=== PATIENT | male | born 1970 | race Caucasian/White ===

== ENCOUNTER 2016-09-30 17:37 | Emergency (ER) | payer OTHER ==
[2016-09-30 17:42] VITALS: BP 113/67; PULSE 70; TEMP 98; BMI 27.4
--- NOTE | 2016-09-30 18:55 | PDOC ---
History of Present Illness - General Chief Complaint: Wound Stated Complaint: WOUND Time Seen by Provider: 09/30/16 18:33 History Source: Other (staff from [place] ) Exam Limitations: No Limitations - History of Present Illness Initial Comments: 09/30/16 19:41 Chief complaint: Blister formation on right 3rd toe with tenderness and surrounding redness History of present illness: Patient is a 46-year-old with Down syndrome an insulin-dependent diabetic here today with staff from her [place] due to staff noticing worsening blister formation with redness around blister on right third toe. Forms with pt. do not have documentation of tetanus, staff unable to provide additional information and tells commercial loan underwriter that no one is at the home that can provide that information. Staff does not know if he stepped on something, he does go barefoot. Pt. is ambulating as usual. Occurred: reports: other (getting worse over last 3 days) Severity: reports: mild Pain Location: reports: lower extremity (slight rt. 3rd toe blister formation with surrounding erythema) Method of Injury: Yes: unknown Modifying Factors: improves with: None Loss of Consciousness: no loss of consciousness Associated Symptoms (Fall): other (blister formation rt. 3rd toe) Past History - Past Medical History Allergies/Adverse Reactions: Allergies Allergy/AdvReac Type Severity Reaction Status Date / Time Penicillins Allergy Verified 09/30/16 17:42 Home Medications: Ambulatory Orders Metformin HCl [Glucophage -] 850 mg PO BID 09/30/16 Sulfamethoxazole/Trimethoprim [Bactrim Ds -] 1 tab PO BID #13 tablet 09/30/16 Diabetes: Yes (pre) Hypercholesterolemia: Yes - Psycho/Social/Smoking Cessation Hx Anxiety: No Suicidal Ideation: No Smoking Status: No Smoking History: Never smoked Have you smoked in the past 12 months: No Number of Cigarettes Smoked Daily: 0 Cigars Per Day: 0 Information on smoking cessation initiated: No Hx Alcohol Use: No Drug/Substance Use Hx: No Substance Use Type: None Review of Systems - Review of Systems Able to Perform ROS?: Yes Constitutional: No: Symptoms Reported HEENTM: No: Symptoms Reported Respiratory: No: Symptoms reported Cardiac (ROS): No: Symptoms Reported ABD/GI: No: Symptoms Reported : No: Symptoms Reported Integumentary: Yes: Other (blister formation rt. toe with surrounding erythema 3rd toe) Neurological: No: Symptoms reported *Physical Exam - Vital Signs Last Vital Signs Temp Pulse Resp BP Pulse Ox 98 F 70 18 113/67 98 09/30/16 17:40 09/30/16 17:40 09/30/16 17:40 09/30/16 17:40 09/30/16 17:40 - Physical Exam General Appearance: Yes: Appropriately Dressed Vascular Pulses: Dorsalis-Pedis (R): 4+ Extremity: positive: Normal Capillary Refill, Normal Inspection, Normal Range of Motion (rt. 3rd toe ), Tender (rt 3 rd toe ) Integumentary: positive: Other (blister formation rt. 3rd toe with surrounding erythema) Neurologic: positive: Respond to painful stimul (rt. 3rd toe ). negative: Numbness, Sensory Deficit (rt. 3rd toe) Procedures - Consent Consent obtained: From Parents - Incision and Drainage I&D Site: Right: Other (toe third ) Betadine cleansed: Yes Attempts: 1 Plain Packing: No Complications: none Dressing: Yes (CHASE knight ) Progress: 09/30/16 19:47 Tiny open area noted on plantar aspect of the right third toe blister, sprayed toe with Cetacaine and cleansing with Betadine and normal saline 0.9% was able to open area with an 18-gauge needle large amount of purulent drainage obtained no foreign body noted area irrigated well with normal saline xray of toe Medical Decision Making - Medical Decision Making 09/30/16 19:44 Patient is a 46-year-old with Down syndrome an insulin-dependent diabetic here today with staff from her [place] due to staff noticing worsening blister formation with redness around blister on right third toe. Forms with pt. do not have documentation of tetanus, staff unable to provide additional information and tells commercial loan underwriter that no one is at the home that can provide that information. Staff does not know if he stepped on something, he does go barefoot. Pt. is ambulating as usual. Rt.third toe blister formation foreign body Removal of foreign body rt. 3rd toe rt. 3rd toe cellulitis PLAN: xray rt. 3rd toe reveals tiny foreign body medial aspect of rt. 3rd toe, no fx noted xray post I & D of rt. 3rd toe blister interval removal of foreign body noted from previous xray per Dr. Das wound culture rt. 3rd toe wound bactrim DS 1 tab now than bid for 7 days removal of rt. 3rd toe foreign body DSD applied 09/30/16 20:17 09/30/16 23:16 *DC/Admit/Observation/Transfer Diagnosis at time of Disposition: Cellulitis of toe of right foot, Foreign body of toe, right, infected - Discharge Dispostion Disposition: HOME Condition at time of disposition: Stable - Prescriptions Prescriptions: Sulfamethoxazole/Trimethoprim [Bactrim Ds -] 1 tab PO BID #13 tablet - Patient Instructions Additional Instructions: Cleanse right third toe with antibacterial soap and water twice daily and apply tiny amount of bacitracin ointment allow in from blister to fall off naturally cover with Band-Aid Make sure that tetanus shot is current if not have it updated with primary care provider could not find record of it being done on forms provided Return to emergency room if any increased redness around right toe or foot or any fever Give ibuprofen as needed as directed by transfer table operator helper Foreign body was removed from blister formation on right third toe Do not allow him to walk around with no shoes on Follow Up with primary care provider within the next few days Patient voiced understanding of discharge instructions and all questions were answered
[2016-09-30] MEDS ORDERED: SULFAMETHOXAZOLE/TRIMETHOPRIM 800MG/160MG D.S. TABLET PO ONE (19:41)
[2016-09-30] MEDS ORDERED: SULFAMETHOXAZOLE/TRIMETHOPRIM 800MG/160MG D.S. TABLET ONE (19:43)
== END 2016-09-30 20:32 | disposition home or self-care (01) ==
LOC: JERFT 17:37
PROC: 0H9MXZZ Drainage of Right Foot Skin, External Approach (ICD-10-PCS; principal; 2016-09-30)
DX: L03.031 Cellulitis of right toe (principal); S90.454A Superficial foreign body, right lesser toe(s), initial encounter; E11.9 Type 2 diabetes mellitus without complications; Z79.84 Long term (current) use of oral hypoglycemic drugs; Q90.9 Down syndrome, unspecified
CPT/HCPCS: 73660-TC; 87070; 87186; 87205; 99281-25

== ENCOUNTER 2018-08-09 10:48 | Emergency (ER) | payer OTHER ==
[2018-08-09 11:30] VITALS: BMI 27.8
--- NOTE | 2018-08-09 13:07 | PDOC ---
History of Present Illness - General History Source: Care Provider - History of Present Illness Initial Comments: 08/09/18 13:18 The patient is a 48-year-old male from [facility], with a past medical history of down syndrome, HLD, and prediabetes, who presents to the ED with 1 month of difficulty with urination. Mariela is at bedside and states that she feels that the foreskin is so small that the urine is having difficulty coming through. When the patient tries to urinate the urine is getting caught behind the foreskin. Patient reports pain with urination today. He has not seen a urologist yet. Denies any hematuria. The patient denies any fevers, chills, nausea, vomiting, diarrhea, or abdominal pain. Denies chest pain shortness of breath. Allergies: Penicillins. Social History: None reported. Surgical History: None reported. <Graciela Gonzales - Last Filed: 08/09/18 13:25> <Elizabeth Live - Last Filed: 08/09/18 14:46> - General Chief Complaint: Urinary Problem Stated Complaint: URINARY PROBLEM Time Seen by Provider: 08/09/18 11:52 Past History <Graciela Gonzales - Last Filed: 08/09/18 13:25> - Past Medical History COPD: No Diabetes: Yes (pre) Hypercholesterolemia: Yes - Immunization History Immunization Up to Date: No - Suicide/Smoking/Psychosocial Hx Smoking Status: No Smoking History: Never smoked Have you smoked in the past 12 months: No Number of Cigarettes Smoked Daily: 0 Cigars Per Day: 0 Information on smoking cessation initiated: No Hx Alcohol Use: No Drug/Substance Use Hx: No Substance Use Type: None <Elizabeth Live - Last Filed: 08/09/18 14:46> - Past Medical History Allergies/Adverse Reactions: Allergies Allergy/AdvReac Type Severity Reaction Status Date / Time Penicillins Allergy Verified 09/30/16 17:42 Home Medications: Ambulatory Orders Sulfamethoxazole/Trimethoprim [Bactrim Ds -] 1 tab PO BID #13 tablet 09/30/16 metFORMIN HCL [Glucophage -] 850 mg PO BID 09/30/16 Review of Systems - Review of Systems Able to Perform ROS?: Yes Comments:: 08/09/18 13:25 GENERAL/CONSTITUTIONAL: No fever or chills. No weakness. HEAD, EYES, EARS, NOSE AND THROAT: No change in vision. No ear pain or discharge. No sore throat. CARDIOVASCULAR: No chest pain or shortness of breath. RESPIRATORY: No cough, wheezing, or hemoptysis. GASTROINTESTINAL: No nausea, vomiting, diarrhea or constipation. GENITOURINARY: (+)Difficulty with urination and dysuria. No frequency. MUSCULOSKELETAL: No joint or muscle swelling or pain. No neck or back pain. SKIN: No rash NEUROLOGIC: No headache, vertigo, loss of consciousness, or change in strength/ sensation. ENDOCRINE: No increased thirst. No abnormal weight change. HEMATOLOGIC/LYMPHATIC: No anemia, easy bleeding, or history of blood clots. ALLERGIC/IMMUNOLOGIC: No hives or skin allergy. <Graciela Gonzales - Last Filed: 08/09/18 13:25> *Physical Exam - Vital Signs Last Vital Signs Temp Pulse Resp BP Pulse Ox 98.4 F 86 18 98/65 98 08/09/18 11:26 08/09/18 11:26 08/09/18 11:26 08/09/18 11:08/09/18 11:26 - Physical Exam Comments: 08/09/18 13:27 GENERAL: Awake, alert, and fully oriented, in no acute distress HEAD: No signs of trauma EYES: PERRLA, EOMI, sclera anicteric, conjunctiva clear ENT: Auricles normal inspection, nares patent, oropharynx clear without exudates. Moist mucosa. NECK: Normal ROM, supple, no lymphadenopathy, JVD, or masses LUNGS: Breath sounds equal, clear to auscultation bilaterally. No wheezes, and no crackles HEART: Regular rate and rhythm, normal S1 and S2, no murmurs, rubs or gallops ABDOMEN: Soft, nontender, normoactive bowel sounds. No guarding, no rebound. No masses : (+)Foreskin is forward and the opening is less than a mm big, cloudy urine is coming from the meatus. No erythema, no discharge. EXTREMITIES: Normal range of motion, no edema. No clubbing or cyanosis. No cords, erythema, or tenderness NEUROLOGICAL: Alert and oriented x3. Moves all extremities. Face is symmetric. SKIN: Warm, Dry, normal turgor, no rashes or lesions noted <Graciela Gonzales - Last Filed: 08/09/18 13:25> - Vital Signs Last Vital Signs Temp Pulse Resp BP Pulse Ox 98.4 F 86 18 98/65 98 08/09/18 11:26 08/09/18 11:26 08/09/18 11:26 08/09/18 11:26 08/09/18 11:26 <Elizabeth Live - Last Filed: 08/09/18 14:46> Moderate Sedation - Procedure Monitoring Vital Signs: Procedure Monitoring Vital Signs Temperature 98.4 F 08/09/18 11:26 Pulse Rate 86 08/09/18 11:26 Respiratory Rate 18 08/09/18 11:26 Blood Pressure 98/65 08/09/18 11:26 O2 Sat by Pulse Oximetry (%) 98 08/09/18 11:26 <Graciela Gonzales - Last Filed: 08/09/18 13:25> - Procedure Monitoring Vital Signs: Procedure Monitoring Vital Signs Temperature 98.4 F 08/09/18 11:26 Pulse Rate 86 08/09/18 11:26 Respiratory Rate 18 08/09/18 11:26 Blood Pressure 98/65 08/09/18 11:26 O2 Sat by Pulse Oximetry (%) 98 08/09/18 11:26 <Elizabeth Live - Last Filed: 08/09/18 14:46> Medical Decision Making - Medical Decision Making 08/09/18 13:05 48 yo male with h/o downs syndrome here with c/o difficulty urinating due to small opening at foreskin, uncircumcised. no fc no n/v no abd pain, mild dysuria. small opening at meatus. pt is passing urine. will require urology fu. ua r/o uti. 08/09/18 14:13 d/w dr callejas, 08/09/18 14:32 urine negative for UTi will fu dr callejas 10 am on 08/11. <Elizabeth Live - Last Filed: 08/09/18 14:46> *DC/Admit/Observation/Transfer - Attestations Scribe Attestion: 08/09/18 13:28 Documentation prepared by Graciela Gonzales, acting as product manager medical device for Elizabeth Live MD. <Graciela Gonzales - Last Filed: 08/09/18 13:25> <Elizabeth Live - Last Filed: 08/09/18 14:46> Diagnosis at time of Disposition: Foreskin adhesions - Discharge Dispostion Disposition: HOME Condition at time of disposition: Stable - Referrals Referrals: Tao Callejas MD [Staff Physician] - - Patient Instructions Printed Discharge Instructions: DI for Circumcision Additional Instructions: you should follow up with DR Callejas, at 10 am 08/11/ return for inability to urinate, fever chills or any concerns.
[2018-08-09 14:22] LABS: URINE APPEARANCE SLCLOUDY; URINE BILIRUBIN NEGATIVE (<2.0 mg/dL); URINE COLOR LTYELLOW; URINE GLUCOSE (UA) NEGATIVE (NEGATIVE); URINE KETONE NEGATIVE (NEGATIVE); URINE LEUK ESTERASE NEGATIVE (NEGATIVE); URINE NITRITE NEGATIVE (NEGATIVE); URINE PROTEIN NEGATIVE (NEGATIVE); URINE UROBILINOGEN NEGATIVE mg/dL (0.2-1.0)
[2018-08-09 15:45] VITALS: BP 102/60; PULSE 83; TEMP 98
== END 2018-08-09 15:45 | disposition home or self-care (01) ==
LOC: JER 10:48
DX: Q55.8 Other specified congenital malformations of male genital organs (principal); E11.9 Type 2 diabetes mellitus without complications; Z79.84 Long term (current) use of oral hypoglycemic drugs; E78.5 Hyperlipidemia, unspecified; E78.00 Pure hypercholesterolemia, unspecified; Q90.9 Down syndrome, unspecified
CPT/HCPCS: 81003; 87086; 87186; 99282-25

== ENCOUNTER 2018-08-19 12:24 | Day surgery (SDC) | payer OTHER ==
--- NOTE | 2018-08-19 13:27 | HP ---
History & Physical Update - History History: No Change - Physical Physical: No Change - Assessment Assessment: No Change - Plan Plan: No Change
--- NOTE | 2018-08-19 13:28 | OP ---
Operative Note - Note: Operative Date: 08/19/18 Pre-Operative Diagnosis: phimosis Operation: circumcision and penoplasty Findings: phimosis Post-Operative Diagnosis: Same as Pre-op (and penile deformity/chordee) Surgeon: Tao Callejas Anesthesiologist/PREPARATION ROOM MANAGER: Gill Vo Anesthesia: General, Local Specimens Removed: foreskin Estimated Blood Loss (mls): 0 Operative Report Dictated: Yes
[2018-08-19] MEDS ORDERED: BUPIVACAINE HCL/PF 0.5% (5MG/ML) 10 ML VIAL ONE (14:15)
[2018-08-19] MEDS ORDERED: LIDOCAINE HCL/PF 2% SDV 5ML VIAL ONE (14:34)
[2018-08-19] MEDS ORDERED: PROPOFOL 20 ML ONE ×3 (14:34)
[2018-08-19] MEDS ORDERED: CLINDAMYCIN PHOSPHATE 600 MG/4 ML VIAL ONE (14:42)
[2018-08-19] MEDS ORDERED: CLINDAMYCIN 600 MG PREMIX BAG IVPB ONE (14:43)
[2018-08-19] MEDS ORDERED: BUPIVACAINE HCL/PF 0.5% (5MG/ML) 10 ML VIAL IJ ONE (15:04)
[2018-08-19] MEDS ORDERED: ONDANSETRON 4 MG/2 ML VIAL IVPUSH PRN (15:57)
[2018-08-19] MEDS ORDERED: oxyCODONE HCL 5 MG TABLET PO PRN ×2 (15:57)
[2018-08-19] MEDS ORDERED: LACTATED RINGERS SOLUTION 1,000 ML IV SCH (16:00)
[2018-08-19 16:28] VITALS: TEMP 97.5
[2018-08-19] MEDS ORDERED: BACITRACIN 15 GM TUBE TOPICAL OINTMENT ONE (16:28)
--- NOTE | 2018-08-19 16:47 | OP ---
DATE OF OPERATION: 08/19/2018 PREOPERATIVE DIAGNOSIS: Phimosis. POSTOPERATIVE DIAGNOSIS: Phimosis, penile deformity. PROCEDURE: Circumcision and penoplasty. SURGEON: Tao Parks MD MANUFACTURER: None. ANESTHESIA: General via laryngeal mask plus local. ANESTHESIOLOGIST: Gilda. SPECIMEN: Foreskin. CULTURES: None. DRAINS: None. ESTIMATED BLOOD LOSS: Negligible. COMPLICATIONS: None. DESCRIPTION OF PROCEDURE: The patient was brought into the operating room and placed on the operating table in supine position. After administration of general anesthesia via laryngeal mask, intravenous antibiotics were administered. Sequential compression devices were placed. The patient was placed in a dorsal lithotomy position, and the genitals were prepped and draped in the usual sterile manner. The foreskin could not be retracted due to severe phimosis. A dorsal slit was made after placing a straight clamp. This was done at the 12 o'clock position. The foreskin was retracted, and the glans penis and prepuce was now prepped again with Betadine. Circumcoronal incision had been outlined with a marking pen. Then 10 mL of 0.5% Marcaine was injected circumferentially at the base of the penis for penile block. Circumcoronal incision was made with scalpel at the previously marked circumcoronal incision. The prepuce was now incised circumferentially leaving 1/2-cm cuff circumferentially. The redundant foreskin was excision and sent to Pathology as a specimen. Hemostasis was assured with electrocautery. Penile deformity of chordee was noted. Artificial erection was created. Some adhesions at the ventral aspect of the penis overlying the urethra were incised carefully using Metzenbaum scissors. Straightening of the chordee was achieved. Now the penile skin and subcoronal prepucal mucosal tissue was approximated using interrupted 4-0 chromic sutures circumferentially. The wounds were sterilely dressed with bacitracin, Xeroform gauze, 4 x 4, and Coban. He tolerated the procedure well. He was awoken from anesthesia in the operating room and transferred to the recovery room in stable condition. TAO PARKS M.D. [id number]
[2018-08-19 17:20] VITALS: BP 132/80; PULSE 79
--- NOTE | 2018-08-23 16:50 | PATH ---
Surgical Pathology Report Patient Name: SAWYER AGUSTIN [facility]. Rec. #: [id number] /Age/Gender: 1970 (Age: 48) / M Account: [id number] Location: [facility] SUR[facility]ICAL Taken: 08/19/2018 Received: 08/22/2018 Reported: 08/23/2018 Physicians: Tao Callejas M.D. Specimen(s) Received FORESK[place] Clinical History Phimosis Final Diagnosis FOR[place], EXCISION: SEGMENT OF SKIN WITH CHRONIC INFLAMMATION AND FOCAL CHANGES CONSISTENT WITH LICHEN SCLEROSUS. Electronically Signed Matt Torres M.D. Gross Description Received in formalin labeled "foreskin," is a 3.5 x 2.6 x 0.3 cm portion of riley-brown, wrinkled skin, consistent with foreskin. Data Processing Auditor sections are submitted in one cassette. /08/22/2018 saudi08/22/2018
== END 2018-08-19 17:00 | disposition home or self-care (01) ==
LOC: JASU-SURG 12:24
PROVIDERS: ATTEND Urology
PROC: 0VNS0ZZ Release Penis, Open Approach (ICD-10-PCS; 2018-08-19)
PROC: 0VTTXZZ Resection of Prepuce, External Approach (ICD-10-PCS; principal; 2018-08-19 13:30)
DX: N47.1 Phimosis (principal); N48.89 Other specified disorders of penis
CPT/HCPCS: 82962; 88304-TC; 94760

== ENCOUNTER 2018-10-19 23:10 | Emergency (ER) | payer OTHER ==
[2018-10-19 23:21] VITALS: BP 122/76; PULSE 77; TEMP 97.4; BMI 29.2
--- NOTE | 2018-10-20 00:51 | PDOC ---
*Physical Exam - Vital Signs Last Vital Signs Temp Pulse Resp BP Pulse Ox 97.4 F L 77 18 122/76 99 10/19/18 23:17 10/19/18 23:17 10/19/18 23:17 10/19/18 23:17 10/19/18 23:17 Medical Decision Making - Medical Decision Making 10/20/18 00:51 Patient seen by the advanced practice provider under my direct supervision. Ancillary testing reviewed as necessary. I agree with plan as outlined by the advanced practice provider. *DC/Admit/Observation/Transfer Diagnosis at time of Disposition: Paronychia - Referrals - Patient Instructions - Post Discharge Activity
--- NOTE | 2018-10-20 01:10 | PDOC ---
History of Present Illness - General Chief Complaint: Edema Stated Complaint: RIGHT/HAND MIDDLE FINGER Time Seen by Provider: 10/20/18 00:49 History Source: Patient, Care Provider Exam Limitations: No Limitations - History of Present Illness Initial Comments: 10/20/18 01:04 HISTORY OF PRESENT ILLNESS: 48-year-old male with developmental delay presents emergency Department for evaluation of swelling to the middle finger of the right hand over the past 4 days. At the patient's longterm given soaking the finger in warm water. Patient reports increased pain and now with pus formation was brought for treatment. No recent travel or sick contacts. PAST MEDICAL HISTORY: Denies past medical history SURGICAL HISTORY: Denies ALLERGIES: PCN REVIEW OF SYSTEMS General/Constitutional: Denies fever or chills. Denies weakness, weight change. HEENT: Denies change in vision. Denies ear pain or discharge. Denies sore throat. Cardiovascular: Denies chest pain or shortness of breath. Respiratory: Denies cough, wheezing, or hemoptysis. Gastrointestinal: Denies nausea, vomiting, diarrhea or constipation. Denies rectal bleeding. Genitourinary: Denies dysuria, frequency, or change in urination. Musculoskeletal: see HPI Skin and breasts: Denies rash or easy bruising. Neurologic: Denies headache, vertigo, loss of consciousness, or loss of sensation. Psychiatric: Denies depression or anxiety. Endocrine: Denies increased thirst. Denies abnormal weight change. Hematologic/Lymphatic: Denies anemia, easy bleeding, or history of blood clots. Allergic/Immunologic: Denies hives or skin allergy. Denies latex allergy. PHYSICAL EXAM General Appearance: Well-appearing, appropriately dressed. No apparent distress , no intoxication. Respiratory/Chest: Lungs CTAB. No shortness of breath, chest tenderness, respiratory distress, accessory muscle use. No crackles, rales, rhonchi, stridor , wheezing, dullness Cardiovascular: RRR. S1, S2. No JVD, murmur, bradycardia, tachycardia. Musculoskeletal/Extremities: Normal inspection. FROM of all extremities, normal capillary refill. Pelvis Stable. No CVA tenderness. No tenderness to extremities, pedal edema, swelling, erythema or deformity. Integumentary: Paronychia present to the third digit of the right hand with pus pocket presents. No erythema or tenderness to the pad of the affected digit. Capillary refill is less than 2 seconds. Neurologic: sports specialist II-XII intact. Fully oriented, alert. Appropriate mood/affect. Motor strength 5/5. No appreciable EOM palsy, facial droop or sensory deficit. Past History - Past Medical History Allergies/Adverse Reactions: Allergies Allergy/AdvReac Type Severity Reaction Status Date / Time Penicillins Allergy Unverified 10/19/18 23:17 Home Medications: Ambulatory Orders Cyanocobalamin [Vitamin B12 -] 500 mcg PO DAILY 08/19/18 Clindamycin HCl 450 mg PO TID #63 capsule 10/20/18 Anemia: No Asthma: No Cancer: No Cardiac Disorders: No CVA: No COPD: No CHF: No Dementia: No Diabetes: Yes GI Disorders: No Disorders: No HTN: No Hypercholesterolemia: No Liver Disease: No Seizures: No Thyroid Disease: No Other medical history: celiac disease, down's syndrome, mental retardation - Immunization History Immunization Up to Date: Yes - Suicide/Smoking/Psychosocial Hx Smoking Status: No Smoking History: Never smoked Have you smoked in the past 12 months: No Number of Cigarettes Smoked Daily: 0 Cigars Per Day: 0 Hx Alcohol Use: No Drug/Substance Use Hx: No Substance Use Type: None Hx Substance Use Treatment: No *Physical Exam - Vital Signs Last Vital Signs Temp Pulse Resp BP Pulse Ox 97.4 F L 77 18 122/76 99 10/19/18 23:17 10/19/18 23:17 10/19/18 23:17 10/19/18 23:17 10/19/18 23:17 Procedures - Consent Consent obtained: Verbal, From Guardians - Incision and Drainage I&D Site: Right: Paronychia (3rd finger) Betadine cleansed: Yes Blade Size: 11 Attempts: 1 Plain Packing: No Complications: none Dressing: No Progress: 10/20/18 01:07 Patient tolerated well. Medical Decision Making - Medical Decision Making 10/20/18 01:07 A/P: 48-year-old developmental delayed male with paronychia of the right middle finger I and D-see procedure note for details wound culture I will discharge the patient home with prescription for clindamycin for her 50 mg 3 times a day for 7 days. 10/20/18 01:12 10/21/18 02:20 *DC/Admit/Observation/Transfer Diagnosis at time of Disposition: Paronychia - Discharge Dispostion Disposition: HOME Condition at time of disposition: Stable Decision to Admit order: No - Prescriptions Prescriptions: Clindamycin HCl 450 mg PO TID #63 capsule - Referrals - Patient Instructions Additional Instructions: Take clindamycin 450mg 3 times a day for the next 7 days Finish all antibiotics even if you feel better. Apply warm compresses to your finger as needed. Do not pick wound. Return to emergency department for any worsening pain, drainage, or any other concerns. Thank you very much for choosing us to provide your emergent health care needs. - Post Discharge Activity
== END 2018-10-20 02:18 | disposition home or self-care (01) ==
LOC: JER 23:10
PROC: 0J9J0ZZ Drainage of Right Hand Subcutaneous Tissue and Fascia, Open Approach (ICD-10-PCS; principal; 2018-10-19)
DX: L03.011 Cellulitis of right finger (principal); E11.9 Type 2 diabetes mellitus without complications; Z79.84 Long term (current) use of oral hypoglycemic drugs; K90.0 Celiac disease; F79 Unspecified intellectual disabilities; Q90.9 Down syndrome, unspecified
CPT/HCPCS: 87070; 87186; 87205; 99281-25

== ENCOUNTER 2023-08-03 16:44 | Inpatient (IN) | payer OTHER ==
[2023-08-03 16:54] VITALS: BMI 32.0
[2023-08-03] MEDS ORDERED: ACETAMINOPHEN INJECTION 100 ML IVPB ONE (18:05)
[2023-08-03 18:07] LABS: BASO % 1.3 % (0-2.0); EOS % 0.6 % (0-4.5); HEMATOCRIT 42.3 % (35.4-49); HEMOGLOBIN 14.3 GM/dL (11.7-16.9); LYMPH % 45.6 % (8-40); MCH 33.1 pg (25.7-33.7); MCHC 33.7 g/dl (32.0-35.9); MEAN CELL VOLUME 98.3 fl (80-96); MEAN PLT VOLUME 6.9 fl (7.5-11.1); MONO % 12.5 % (3.8-10.2); PLATELET COUNT 274 10^3/uL (134-434); RBC 4.31 M/mm3 (4.00-5.60); RDW 15.6 % (11.9-15.9); WHITE BLOOD COUNT 6.1 K/mm3 (4.0-10.0)
[2023-08-03] MEDS: ACETAMINOPHEN 1000 MG/100 ML BAG IVPB ONE (18:10)
[2023-08-03 18:27] LABS: CALCIUM 8.1 mg/dL (8.5-10.1)
[2023-08-03 18:28] LABS: ALBUMIN 2.5 g/dl (3.4-5.0); BLOOD UREA NITROGEN 16.2 mg/dL (7-18)
[2023-08-03 18:33] LABS: TOT PROT 10.6 g/dl (6.4-8.2)
[2023-08-03 19:47] LABS: URINE APPEARANCE CLEAR; URINE BILIRUBIN NEGATIVE (NEGATIVE); URINE COLOR YELLOW; URINE GLUCOSE (UA) NEGATIVE (NEGATIVE); URINE KETONE TRACE (NEGATIVE); URINE LEUK ESTERASE NEGATIVE (NEGATIVE); URINE NITRITE NEGATIVE (NEGATIVE); URINE PROTEIN NEGATIVE (NEGATIVE); URINE UROBILINOGEN 0.2 mg/dL (0.2-1.0)
[2023-08-03 21:36] LABS: POTASSIUM 3.9 mmol/L (3.5-5.1)
[2023-08-03 21:40] LABS: ALBUMIN 2.9 g/dl (3.4-5.0); BLOOD UREA NITROGEN 13.6 mg/dL (7-18); CALCIUM 7.9 mg/dL (8.5-10.1)
[2023-08-03 21:43] LABS: CREATININE 0.9 mg/dL (0.55-1.3)
[2023-08-03 21:44] LABS: BILIRUBIN,TOTAL 0.9 mg/dL (0.2-1)
[2023-08-03 21:52] LABS: TOT PROT 6.9 g/dl (6.4-8.2)
[2023-08-04] MEDS: ACETAMINOPHEN 500 MG TABLET (FP) PO SCH (03:56)
[2023-08-04] MEDS: CARBIDOPA/LEVODOPA 25/100 TABLET (FP) PO SCH (06:27)
[2023-08-04] MEDS: LEVOTHYROXINE NA 25 MCG TABLET (FP) PO SCH (06:27)
[2023-08-04 09:48] LABS: HEMATOCRIT 41.1 % (35.4-49); HEMOGLOBIN 13.9 GM/dL (11.7-16.9); MCH 33.2 pg (25.7-33.7); MCHC 33.9 g/dl (32.0-35.9); MEAN CELL VOLUME 97.8 fl (80-96); MEAN PLT VOLUME 6.9 fl (7.5-11.1); PLATELET COUNT 269 10^3/uL (134-434); RBC 4.21 M/mm3 (4.00-5.60); RDW 15.4 % (11.9-15.9); WHITE BLOOD COUNT 4.6 K/mm3 (4.0-10.0)
[2023-08-04] MEDS ORDERED: CYANOCOBALAMIN (VITAMIN B-12) 100 MCG TABLET PO SCH (10:00)
[2023-08-04 10:05] LABS: POTASSIUM 3.8 mmol/L (3.5-5.1)
[2023-08-04 10:26] LABS: CALCIUM 8.4 mg/dL (8.5-10.1); MAGNESIUM 2.5 mg/dL (1.8-2.4)
[2023-08-04 10:29] LABS: CREATININE 0.9 mg/dL (0.55-1.3); PHOSPHOROUS 3.4 mg/dL (2.5-4.9)
[2023-08-04 10:30] LABS: BILIRUBIN,TOTAL 0.7 mg/dL (0.2-1)
[2023-08-04] MEDS: ENOXAPARIN NA (PORCINE) 40 MG/0.4 ML DISP.SYRIN SQ SCH (10:36)
[2023-08-04] MEDS: DOCUSATE SODIUM 100 MG CAPSULE (FP) PO SCH (10:36)
[2023-08-04] MEDS: CYANOCOBALAMIN 1,000 MCG TABLET (FP) PO SCH (10:36)
[2023-08-04] MEDS: LORATADINE 10 MG TABLET PO SCH (10:36)
[2023-08-04] MEDS: POLYETHYLENE GLYCOL (HEALTHYLAX) 3350 17 GM PACKET PO SCH (10:37)
[2023-08-04] MEDS: INSULIN ASPART SLIDING SCALE (NOVOLOG) 1 VIAL SQ SCH (12:10)
[2023-08-04] MEDS: CHOLECALCIFEROL (VIT D3) 1,000 UNIT (25 MCG) TABLET PO SCH (21:39)
[2023-08-04] MEDS: ATORVASTATIN CA 10 MG TABLET (FP) PO SCH (21:39)
[2023-08-04] MEDS: SENNOSIDES 8.6MG TABLET (FP) PO SCH (21:39)
[2023-08-05 08:50] LABS: POTASSIUM 3.9 mmol/L (3.5-5.1)
[2023-08-05 08:54] LABS: CALCIUM 8.3 mg/dL (8.5-10.1)
[2023-08-05 08:55] LABS: ALBUMIN 2.8 g/dl (3.4-5.0); BLOOD UREA NITROGEN 14.3 mg/dL (7-18)
[2023-08-05 08:58] LABS: CREATININE 0.9 mg/dL (0.55-1.3)
[2023-08-05 08:59] LABS: HEMOGLOBIN 14.1 GM/dL (11.7-16.9); MCH 32.6 pg (25.7-33.7); MCHC 33.5 g/dl (32.0-35.9); MEAN CELL VOLUME 97.3 fl (80-96); MEAN PLT VOLUME 7.1 fl (7.5-11.1); PLATELET COUNT 262 10^3/uL (134-434); RBC 4.31 M/mm3 (4.00-5.60); RDW 15.3 % (11.9-15.9); TOT PROT 6.7 g/dl (6.4-8.2)
[2023-08-05 09:00] LABS: BILIRUBIN,TOTAL 0.7 mg/dL (0.2-1)
[2023-08-05 09:33] VITALS: RESP 18
[2023-08-05 10:02] LABS: ANISOCYTOSIS 0; MACROCYTOSIS 0
[2023-08-05] MEDS: traMADol HCL 50 MG TABLET PO PRN (23:07)
[2023-08-06 10:00] LABS: BASO % 1.1 % (0-2.0); EOS % 1.3 % (0-4.5); HEMATOCRIT 42.6 % (35.4-49); HEMOGLOBIN 14.7 GM/dL (11.7-16.9); LYMPH % 36.1 % (8-40); MCH 33.4 pg (25.7-33.7); MCHC 34.5 g/dl (32.0-35.9); MEAN CELL VOLUME 96.8 fl (80-96); MEAN PLT VOLUME 6.8 fl (7.5-11.1); MONO % 8.9 % (3.8-10.2); NEUT % 52.6 % (42.8-82.8); PLATELET COUNT 277 10^3/uL (134-434); RBC 4.41 M/mm3 (4.00-5.60); RDW 15.3 % (11.9-15.9)
[2023-08-06 10:21] LABS: POTASSIUM 3.9 mmol/L (3.5-5.1)
[2023-08-06 10:36] LABS: ALBUMIN 2.9 g/dl (3.4-5.0); BLOOD UREA NITROGEN 17.7 mg/dL (7-18); CALCIUM 9.1 mg/dL (8.5-10.1)
[2023-08-06 10:38] LABS: CREATININE 0.8 mg/dL (0.55-1.3)
[2023-08-06 10:40] LABS: BILIRUBIN,TOTAL 0.7 mg/dL (0.2-1); TOT PROT 7.1 g/dl (6.4-8.2)
[2023-08-06 14:20] VITALS: BP 115/71; PULSE 80; TEMP 98.4
== END 2023-08-06 13:55 | disposition home or self-care (01) | DRG 347 ==
LOC: JER 16:44 → JERBED 21:34 → J5S 08-04 02:11 → OBSVTOIN 08-04 10:01 → J5S 08-04 10:32
PROVIDERS: ADMIT Internal Medicine
DX: S22.080A Wedge compression fracture of T11-T12 vertebra, initial encounter for closed fracture (principal); Q90.9 Down syndrome, unspecified; K90.0 Celiac disease; E78.5 Hyperlipidemia, unspecified; E11.9 Type 2 diabetes mellitus without complications; G20.A1 Parkinson's disease without dyskinesia, without mention of fluctuations; E78.1 Pure hyperglyceridemia; X58.XXXA Exposure to other specified factors, initial encounter; Y93.9 Activity, unspecified; Y92.9 Unspecified place or not applicable; Y99.9 Unspecified external cause status
CPT/HCPCS: 36415; 74177-TC; 80053; 81003; 82962; 83605; 83690; 83735; 84100; 85025; 85027; 87086; 87635; 93005; 93010; 97116-GP; 97162-GP; 99285-25; G0378; J0131; Q9967

== ENCOUNTER 2024-03-16 11:29 | Emergency (ER) | payer OTHER ==
[2024-03-16 11:36] VITALS: BP 127/73; PULSE 93; RESP 18; TEMP 97.5; BMI 28.3
[2024-03-16 13:32] LABS: BASO % 0.5 % (0-2.0); EOS % 1.4 % (0-4.5); HEMATOCRIT 42.1 % (35.4-49); LYMPH % 37.9 % (8-40); MCH 32.5 pg (25.7-33.7); MCHC 33.3 g/dl (32.0-35.9); MEAN CELL VOLUME 97.6 fl (80-96); MEAN PLT VOLUME 6.9 fl (7.5-11.1); MONO % 10.2 % (3.8-10.2); PLATELET COUNT 265 10^3/uL (134-434); RBC 4.32 M/mm3 (4.00-5.60); RDW 15.3 % (11.9-15.9); WHITE BLOOD COUNT 6.8 K/mm3 (4.0-10.0)
[2024-03-16 13:45] LABS: CALCIUM 8.7 mg/dL (8.5-10.1); POTASSIUM 4.1 mmol/L (3.5-5.1)
[2024-03-16 13:47] LABS: BLOOD UREA NITROGEN 10.5 mg/dL (7-18); MAGNESIUM 2.3 mg/dL (1.8-2.4)
[2024-03-16 13:50] LABS: CREATININE 0.7 mg/dL (0.55-1.3)
[2024-03-16 13:52] LABS: BILIRUBIN,TOTAL 0.5 mg/dL (0.2-1); TOT PROT 7.4 g/dl (6.4-8.2)
[2024-03-16 15:38] LABS: PH,URINE 7.5 (5.0-8.0); URINE APPEARANCE CLEAR; URINE BILIRUBIN NEGATIVE (NEGATIVE); URINE COLOR YELLOW; URINE GLUCOSE (UA) NEGATIVE (NEGATIVE); URINE KETONE NEGATIVE (NEGATIVE); URINE LEUK ESTERASE NEGATIVE (NEGATIVE); URINE NITRITE NEGATIVE (NEGATIVE); URINE PROTEIN NEGATIVE (NEGATIVE); URINE UROBILINOGEN 0.2 mg/dL (0.2-1.0)
== END 2024-03-16 16:09 | disposition home or self-care (01) ==
LOC: JER 11:29
DX: Z04.3 Encounter for examination and observation following other accident (principal); W19.XXXA Unspecified fall, initial encounter; Y92.002 Bathroom of unspecified non-institutional (private) residence as the place of occurrence of the external cause
CPT/HCPCS: 36415; 70450-TC; 71045-TC-FY; 72125-TC; 72170-TC-FY; 80053; 81003; 83735; 83880; 84484; 85025; 87086; 99285-25